=== PATIENT | female | born 1985 | race Caucasian/White ===

== ENCOUNTER 2017-05-05 13:05 | Inpatient (IN) | payer MEDICAID ==
[~2017-05-05] VITALS: Ht 177.8 cm; Wt 122.5 kg
[~2017-05-05 13:05] MED LIST: LAMO100 PO; LEVO25TA11 PO; METF500T4 PO; PALI234D IM; PALI6 PO
[2017-05-05] MEDS ORDERED: SODIUM CHLORIDE 0.9% 1,000 ML IV ONE (14:45)
[2017-05-05] MEDS ORDERED: ONDANSETRON HCL 4 MG/2 ML VIAL IVP ONE (14:45)
[2017-05-05 15:05] LABS: BASOPHILS % (AUTO) 0.5 % (0.0-2.0); EOSINOPHILS % (AUTO) 0 % (1.0-6.0); HEMATOCRIT 40.6 % (36-46); HEMOGLOBIN 13.8 g/dL (12.0-16.0); LYMPHOCYTES % (AUTO) 26.8 % (22.0-44.0); MEAN CORPUSCULAR HEMOGLOBIN 29.2 pg (26.0-34.0); MEAN CORPUSCULAR HGB CONC 33.9 G/dL (31.0-37.0); MEAN CORPUSCULAR VOLUME 86 fL (80-100); MONOCYTES # (AUTO) 0.6 K/uL (0.1-1.0); MONOCYTES % (AUTO) 5.2 % (2.0-9.0); NEUTROPHILS # (AUTO) 7.4 K/uL (1.8-7.7); NEUTROPHILS % (AUTO) 67.5 % (40.0-70.0); PLATELET COUNT (AUTO) 271 K/uL (150-450); RED BLOOD CELL COUNT(AUTO) 4.71 MIL/uL (4.00-5.20); RED CELL DISTRIBUTION WIDTH 12.1 % (11.5-14.5)
[2017-05-05 15:14] LABS: ANION GAP 11 mmol/L (8-16); CALCIUM, TOTAL 9.1 mg/dL (8.8-10.5); CARBON DIOXIDE 24 mmol/L (22-29); CHLORIDE 104 mmol/L (98-107); CREATININE 0.67 mg/dL (0.60-1.30); GLOMERULAR FILTR. RATE CALC > 60 mL/min (>60); POTASSIUM 3.4 mmol/L (3.5-5.1); SODIUM SERUM 139 mmol/L (136-145); UREA NITROGEN, BLOOD 4 mg/dL (7-18)
[2017-05-05 15:24] LABS: ALANINE AMINOTRANSFERASE 50 U/L (12-78); ASPARTATE AMINOTRANSFERASE 23 U/L (15-37); BILIRUBIN,TOTAL 0.5 mg/dL (0.1-1.0); TOTAL PROTEIN, SERUM 7.1 g/dL (6.4-8.2)
[2017-05-05 17:34] VITALS: BP 124/72
[2017-05-05] MEDS: LORazepam 2 MG TABLET PO PRN (18:08)
[2017-05-05] MEDS: HALOPERIDOL 5 MG TABLET PO PRN (18:08)
[2017-05-05] MEDS: PALIPERIDONE 6 MG ER TABLET PO SCH (18:08)
[2017-05-05 18:12] LABS: GLUCOSE,POINT OF CARE 118 MG/DL (70-110)
[2017-05-05] MEDS ORDERED: GLUCAGON,HUMAN RECOMBINANT 1 MG VIAL IM PRN (18:30)
[2017-05-05] MEDS ORDERED: INSULIN ASPART 100 UNITS/ML SQ PRN (18:30)
[2017-05-06] MEDS: LORazepam 2 MG TABLET PO PRN ×3 (01:35→17:35)
[2017-05-06] MEDS: HALOPERIDOL 5 MG TABLET PO PRN ×2 (01:37→08:29)
[2017-05-06 06:27] LABS: GLUCOSE,POINT OF CARE 119 MG/DL (70-110)
[2017-05-06] MEDS ORDERED: LEVOTHYROXINE SODIUM 25 MCG TABLET PO SCH (06:30)
[2017-05-06 06:41] VITALS: BP 120/60
[2017-05-06] MEDS: MetFORMIN HCL 500 MG TABLET PO SCH ×2 (07:12→16:42)
[2017-05-06 07:22] LABS: HEMOGLOBIN A1C 6.1 % (4.5-6.2)
[2017-05-06 08:17] LABS: CHOL/HDL RATIO 4.9 (3.9-5.7); THYROID STIMULATING HORMONE 6.36 uIU/mL (0.36-3.74)
[2017-05-06] MEDS: PALIPERIDONE 6 MG ER TABLET PO SCH ×2 (08:27→16:42)
[2017-05-06] MEDS: LamoTRIgine 100 MG TABLET PO SCH (08:29)
[2017-05-06] MEDS ORDERED: PETROLATUM,WHITE 71 GM JELLY TP PRN (15:15)
[2017-05-06 16:08] VITALS: BP 135/86
[2017-05-06 16:10] VITALS: BP 133/86
[2017-05-06] MEDS ORDERED: LOPERAMIDE HCL 2 MG CAPSULE PO PRN (18:00)
[2017-05-06] MEDS: ZOLPIDEM TARTRATE 10 MG TABLET PO PRN (20:28)
[2017-05-06] MEDS: ZINC OXIDE 16% PASTE 57 GM TUBE TP PRN (22:00)
[2017-05-07 03:50] VITALS: BP 119/80
[2017-05-07] MEDS: LORazepam 2 MG TABLET PO PRN ×3 (04:41→17:01)
[2017-05-07] MEDS: LEVOTHYROXINE SODIUM 50 MCG TABLET PO SCH (06:31)
[2017-05-07] MEDS: MetFORMIN HCL 500 MG TABLET PO SCH ×2 (06:31→17:01)
[2017-05-07 06:48] LABS: GLUCOSE,POINT OF CARE 124 MG/DL (70-110)
[2017-05-07 08:21] VITALS: BP 126/79
[2017-05-07] MEDS: PALIPERIDONE 6 MG ER TABLET PO SCH ×2 (08:31→17:27)
[2017-05-07] MEDS: LamoTRIgine 100 MG TABLET PO SCH (08:31)
[2017-05-07] MEDS: HALOPERIDOL 5 MG TABLET PO PRN ×2 (13:05→17:27)
[2017-05-07 16:05] VITALS: BP 126/71
[2017-05-07] MEDS: ZOLPIDEM TARTRATE 10 MG TABLET PO PRN (20:45)
[2017-05-07] MEDS: ONDANSETRON HCL 4 MG TABLET PO PRN (22:13)
[2017-05-08 00:02] VITALS: BP 140/94
[2017-05-08] MEDS: LORazepam 2 MG TABLET PO PRN ×4 (00:05→17:08)
[2017-05-08] MEDS: MetFORMIN HCL 500 MG TABLET PO SCH ×2 (06:38→16:13)
[2017-05-08] MEDS: LEVOTHYROXINE SODIUM 50 MCG TABLET PO SCH (06:38)
[2017-05-08 06:52] LABS: GLUCOSE,POINT OF CARE 106 MG/DL (70-110)
[2017-05-08 08:11] VITALS: BP 122/74
[2017-05-08] MEDS: PALIPERIDONE 6 MG ER TABLET PO SCH ×2 (08:51→16:13)
[2017-05-08] MEDS: LamoTRIgine 100 MG TABLET PO SCH (08:52)
[2017-05-08] MEDS: HALOPERIDOL 5 MG TABLET PO PRN ×2 (08:53→17:08)
[2017-05-08] MEDS: ONDANSETRON HCL 4 MG TABLET PO PRN (12:18)
[2017-05-08 16:10] VITALS: BP 118/69
[2017-05-09 00:47] VITALS: BP 132/78
[2017-05-09] MEDS: LORazepam 2 MG TABLET PO PRN ×3 (00:48→20:58)
[2017-05-09] MEDS: HALOPERIDOL 5 MG TABLET PO PRN ×2 (00:48→16:19)
[2017-05-09] MEDS: ZOLPIDEM TARTRATE 10 MG TABLET PO PRN (02:40)
[2017-05-09] MEDS: MetFORMIN HCL 500 MG TABLET PO SCH ×2 (06:39→16:18)
[2017-05-09] MEDS: LEVOTHYROXINE SODIUM 50 MCG TABLET PO SCH (06:39)
[2017-05-09 06:53] LABS: GLUCOSE,POINT OF CARE 104 MG/DL (70-110)
[2017-05-09] MEDS: ONDANSETRON HCL 4 MG TABLET PO PRN (07:41)
[2017-05-09] MEDS: LamoTRIgine 100 MG TABLET PO SCH (07:41)
[2017-05-09] MEDS: PALIPERIDONE 6 MG ER TABLET PO SCH ×2 (07:41→16:18)
[2017-05-09 08:07] VITALS: BP 130/98
[2017-05-09] MEDS ORDERED: IBUPROFEN 600 MG TABLET PO PRN (14:45)
[2017-05-09 15:02] VITALS: BP 126/84
[2017-05-09 16:08] VITALS: BP 141/72
[2017-05-10] MEDS: ACETAMINOPHEN 325 MG TABLET PO PRN ×2 (00:59→20:29)
[2017-05-10 01:07] VITALS: BP 123/77
[2017-05-10] MEDS: MetFORMIN HCL 500 MG TABLET PO SCH ×2 (05:53→16:55)
[2017-05-10] MEDS: LEVOTHYROXINE SODIUM 50 MCG TABLET PO SCH (05:53)
[2017-05-10 06:08] LABS: GLUCOSE,POINT OF CARE 146 MG/DL (70-110)
[2017-05-10] MEDS: PALIPERIDONE 6 MG ER TABLET PO SCH ×2 (06:35→16:26)
[2017-05-10] MEDS: ZINC OXIDE 16% PASTE 57 GM TUBE TP PRN (07:18)
[2017-05-10 08:08] VITALS: BP 126/86
[2017-05-10] MEDS: HALOPERIDOL 5 MG TABLET PO PRN (08:22)
[2017-05-10] MEDS: LORazepam 2 MG TABLET PO PRN ×2 (08:22→16:27)
[2017-05-10] MEDS: LamoTRIgine 100 MG TABLET PO SCH (08:22)
[2017-05-10 16:16] VITALS: BP 121/74
[2017-05-10] MEDS: ONDANSETRON HCL 4 MG TABLET PO PRN (18:39)
[2017-05-10] MEDS: ZOLPIDEM TARTRATE 10 MG TABLET PO PRN (20:29)
[2017-05-11] MEDS: LORazepam 2 MG TABLET PO PRN (00:29)
[2017-05-11] MEDS: HALOPERIDOL 5 MG TABLET PO PRN (00:29)
[2017-05-11 00:31] VITALS: BP 113/77
[2017-05-11] MEDS: MetFORMIN HCL 500 MG TABLET PO SCH (06:07)
[2017-05-11] MEDS: LEVOTHYROXINE SODIUM 50 MCG TABLET PO SCH (06:07)
[2017-05-11 06:12] LABS: GLUCOSE,POINT OF CARE 114 MG/DL (70-110)
[2017-05-11 08:55] VITALS: BP 125/64
[2017-05-11] MEDS: PALIPERIDONE 6 MG ER TABLET PO SCH (09:05)
[2017-05-11] MEDS: LamoTRIgine 100 MG TABLET PO SCH (09:06)
[2017-05-11] MEDS ORDERED: LEVO50TA11 PO (15:47)
[2017-05-11 16:07] VITALS: BP 109/66
== END 2017-05-11 17:00 | disposition home or self-care (01) | DRG 750 ==
LOC: EMS 13:08 → B3A 16:11
PROVIDERS: ADMIT Psychiatry & Neurology Psychiatry; ATTEND Psychiatry & Neurology Psychiatry
DX: F25.0 Schizoaffective disorder, bipolar type (principal); E11.9 Type 2 diabetes mellitus without complications; E03.9 Hypothyroidism, unspecified; F41.9 Anxiety disorder, unspecified; Z79.84 Long term (current) use of oral hypoglycemic drugs; R45.84 Anhedonia; R21 Rash and other nonspecific skin eruption; R53.83 Other fatigue; Z88.8 Allergy status to other drugs, medicaments and biological substances; Z91.048 Other nonmedicinal substance allergy status; Z63.9 Problem related to primary support group, unspecified
CPT/HCPCS: 82962; 83036; 84439; 84443; 87081; 96361; 96374; 99285; G0480; J2405; J7030; Q0162

== ENCOUNTER 2017-05-15 12:47 | Emergency (ER) | payer MEDICAID ==
[~2017-05-15] VITALS: Ht 175.3 cm; Wt 123.2 kg
[~2017-05-15 12:47] MED LIST changes: -LEVO25TA11 PO; +LEVO50TA11 PO
[2017-05-15 13:02] LABS: GLUCOSE,POINT OF CARE 99 MG/DL (70-110)
[2017-05-15 14:14] LABS: BASOPHILS % (AUTO) 0.9 % (0.0-2.0); EOSINOPHILS % (AUTO) 0 % (1.0-6.0); HEMATOCRIT 44.2 % (36-46); HEMOGLOBIN 14.9 g/dL (12.0-16.0); LYMPHOCYTES # (AUTO) 2.7 K/uL (1.0-4.8); LYMPHOCYTES % (AUTO) 30.4 % (22.0-44.0); MEAN CORPUSCULAR HEMOGLOBIN 28.9 pg (26.0-34.0); MEAN CORPUSCULAR HGB CONC 33.7 G/dL (31.0-37.0); MEAN CORPUSCULAR VOLUME 86 fL (80-100); MONOCYTES # (AUTO) 0.4 K/uL (0.1-1.0); MONOCYTES % (AUTO) 4.9 % (2.0-9.0); NEUTROPHILS # (AUTO) 5.6 K/uL (1.8-7.7); NEUTROPHILS % (AUTO) 63.8 % (40.0-70.0); PLATELET COUNT (AUTO) 283 K/uL (150-450); RED BLOOD CELL COUNT(AUTO) 5.16 MIL/uL (4.00-5.20); RED CELL DISTRIBUTION WIDTH 12.4 % (11.5-14.5); WHITE BLOOD COUNT (AUTO) 8.8 K/uL (4.5-11.0)
[2017-05-15 14:36] LABS: ALANINE AMINOTRANSFERASE 64 U/L (12-78); ANION GAP 7 mmol/L (8-16); ASPARTATE AMINOTRANSFERASE 22 U/L (15-37); BILIRUBIN,TOTAL 0.3 mg/dL (0.1-1.0); CALCIUM, TOTAL 9.2 mg/dL (8.8-10.5); CARBON DIOXIDE 28 mmol/L (22-29); CHLORIDE 103 mmol/L (98-107); CREATININE 0.65 mg/dL (0.60-1.30); GLOMERULAR FILTR. RATE CALC > 60 mL/min (>60); POTASSIUM 4.3 mmol/L (3.5-5.1); SODIUM SERUM 138 mmol/L (136-145); TOTAL PROTEIN, SERUM 7.1 g/dL (6.4-8.2); UREA NITROGEN, BLOOD 8 mg/dL (7-18)
[2017-05-15 15:44] VITALS: BP 132/82
== END 2017-05-15 16:04 | disposition home or self-care (01) ==
LOC: EMS 12:49
DX: R10.13 Epigastric pain (principal); R11.2 Nausea with vomiting, unspecified; R44.0 Auditory hallucinations; F41.9 Anxiety disorder, unspecified; F31.9 Bipolar disorder, unspecified; F20.9 Schizophrenia, unspecified; E03.9 Hypothyroidism, unspecified; Z76.0 Encounter for issue of repeat prescription; Z88.8 Allergy status to other drugs, medicaments and biological substances
CPT/HCPCS: 36415; 80053; 81002; 82962; 83690; 84703; 85025; 99284; G0480

== ENCOUNTER 2017-11-09 13:49 | Emergency (ER) | payer MEDICAID ==
[~2017-11-09] VITALS: Ht 175.3 cm; Wt 120.5 kg
[2017-11-09] MEDS ORDERED: LAMO100 PO (15:25)
[2017-11-09] MEDS ORDERED: FLUD25I IM (15:25)
[2017-11-09] MEDS ORDERED: LORA0.5T2 PO (15:25)
[2017-11-09 15:37] LABS: GLUCOSE,POINT OF CARE 164 MG/DL (70-110)
[2017-11-09] MEDS ORDERED: LORazepam 2 MG/ML VIAL IM ONE (16:15)
[2017-11-09] MEDS ORDERED: HALOPERIDOL LACTATE 5 MG/ML VIAL IM ONE (16:15)
[2017-11-09] MEDS ORDERED: DiphenhydrAMINE HCL 50 MG/ML VIAL IM ONE (16:15)
[2017-11-09 16:48] LABS: APPEARANCE,URINE CLOUDY (CLEAR); BILIRUBIN,URINE NEGATIVE (NEGATIVE); GLUCOSE, URINE (UA) NEGATIVE (NEGATIVE); KETONES,URINE NEGATIVE (NEGATIVE); LEUKOCYTE ESTERASE ,URINE SMALL (NEGATIVE); NITRATE,URINE NEGATIVE (NEGATIVE); OCCULT BLOOD,URINE SMALL (NEGATIVE); PH,URINE 5.5 (5.0-8.0); PROTEIN,URINE NEGATIVE (NEGATIVE); UROBILINOGEN,URINE 0.2 mg/dL (<=1.0)
[2017-11-09 16:54] LABS: AMPHET/METH SCREEN,URINE NEGATIVE (NEGATIVE); BARBITURATE SCREEN, URINE NEGATIVE (NEGATIVE); BENZODIAZEPINES SCREEN,URINE NEGATIVE (NEGATIVE); CANNABINOID SCREEN,URINE NEGATIVE (NEGATIVE); COCAINE SCREEN,URINE NEGATIVE (NEGATIVE); METHADONE SCREEN, URINE NEGATIVE (NEGATIVE); OPIATE SCREEN,URINE NEGATIVE (NEGATIVE)
[2017-11-09 16:58] LABS: PHENCYCLIDINE SCREEN,URINE NEGATIVE (NEGATIVE)
[2017-11-09 17:00] LABS: RBC,URINE 0-2 /HPF (0-2)
[2017-11-09 17:01] LABS: BASOPHILS % (AUTO) 0.7 % (0.0-2.0); EOSINOPHILS % (AUTO) 0 % (1.0-6.0); HEMATOCRIT 41.7 % (36-46); HEMOGLOBIN 14.1 g/dL (12.0-16.0); LYMPHOCYTES # (AUTO) 2.6 K/uL (1.0-4.8); LYMPHOCYTES % (AUTO) 27.4 % (22.0-44.0); MEAN CORPUSCULAR HEMOGLOBIN 27.7 pg (26.0-34.0); MEAN CORPUSCULAR HGB CONC 33.7 G/dL (31.0-37.0); MEAN CORPUSCULAR VOLUME 82 fL (80-100); MONOCYTES # (AUTO) 0.5 K/uL (0.1-1.0); MONOCYTES % (AUTO) 4.9 % (2.0-9.0); NEUTROPHILS # (AUTO) 6.4 K/uL (1.8-7.7); PLATELET COUNT (AUTO) 302 K/uL (150-450); RED BLOOD CELL COUNT(AUTO) 5.08 MIL/uL (4.00-5.20); RED CELL DISTRIBUTION WIDTH 13.8 % (11.5-14.5)
[2017-11-09 17:01] LABS: BACTERIA,URINE None Seen /HPF (None Seen); CALCIUM OXALATE CRYSTALS,UR Moderate /LPF (None Seen); SQUAMOUS EPITHELIAL CELL,UR Few /LPF (None Seen)
[2017-11-09 17:10] LABS: ANION GAP 12 mmol/L (8-16); CALCIUM, TOTAL 8.7 mg/dL (8.8-10.5); CARBON DIOXIDE 25 mmol/L (22-29); CHLORIDE 103 mmol/L (98-107); CREATININE 0.78 mg/dL (0.60-1.30); GLOMERULAR FILTR. RATE CALC > 60 mL/min (>60); GLUCOSE,RANDOM 157 mg/dL (70-110); POTASSIUM 3.5 mmol/L (3.5-5.1); SODIUM SERUM 140 mmol/L (136-145); UREA NITROGEN, BLOOD 7 mg/dL (7-18)
[2017-11-09 17:16] LABS: ALANINE AMINOTRANSFERASE 34 U/L (12-78); ALBUMIN 3.5 g/dL (3.4-5.0); ALKALINE PHOSPHATASE 121 U/L (46-116); ASPARTATE AMINOTRANSFERASE 18 U/L (15-37); BILIRUBIN,TOTAL 0.2 mg/dL (0.1-1.0); TOTAL PROTEIN, SERUM 6.6 g/dL (6.4-8.2)
[2017-11-09 18:00] VITALS: BP 120/77
== END 2017-11-09 18:32 | disposition home or self-care (01) ==
LOC: EMS 13:49
DX: F41.9 Anxiety disorder, unspecified (principal); F22 Delusional disorders; F31.9 Bipolar disorder, unspecified; R00.0 Tachycardia, unspecified; F20.9 Schizophrenia, unspecified; E03.9 Hypothyroidism, unspecified; Z76.0 Encounter for issue of repeat prescription; Z88.8 Allergy status to other drugs, medicaments and biological substances
CPT/HCPCS: 36415; 71045; 80053; 80307; 81001; 82962; 84484; 84703; 85025; 87086; 93005; 96372; 99285; G0480; J1200; J1630; J2060

== ENCOUNTER 2017-12-03 03:54 | Inpatient (IN) | payer MEDICAID ==
[~2017-12-03] VITALS: Ht 177.8 cm; Wt 122.7 kg
[~2017-12-03 03:54] MED LIST changes: -METF500T4 PO; +METF500T6 PO
[2017-12-03 04:08] LABS: GLUCOSE,POINT OF CARE 206 MG/DL (70-110)
[2017-12-03] MEDS ORDERED: RISP1 PO (04:10)
[2017-12-03 04:17] LABS: EOSINOPHILS % (AUTO) 0 % (1.0-6.0); HEMATOCRIT 42.2 % (36-46); HEMOGLOBIN 14.1 g/dL (12.0-16.0); LYMPHOCYTES # (AUTO) 1.6 K/uL (1.0-4.8); LYMPHOCYTES % (AUTO) 15.6 % (22.0-44.0); MEAN CORPUSCULAR HGB CONC 33.4 G/dL (31.0-37.0); MEAN CORPUSCULAR VOLUME 81 fL (80-100); MONOCYTES # (AUTO) 0.4 K/uL (0.1-1.0); MONOCYTES % (AUTO) 3.7 % (2.0-9.0); NEUTROPHILS # (AUTO) 8.2 K/uL (1.8-7.7); NEUTROPHILS % (AUTO) 79.7 % (40.0-70.0); PLATELET COUNT (AUTO) 278 K/uL (150-450); RED BLOOD CELL COUNT(AUTO) 5.22 MIL/uL (4.00-5.20); RED CELL DISTRIBUTION WIDTH 14.2 % (11.5-14.5)
[2017-12-03 04:30] LABS: ANION GAP 13 mmol/L (8-16); CARBON DIOXIDE 25 mmol/L (22-29); CHLORIDE 102 mmol/L (98-107); CREATININE 0.89 mg/dL (0.60-1.30); GLOMERULAR FILTR. RATE CALC > 60 mL/min (>60); GLUCOSE,RANDOM 197 mg/dL (70-110); POTASSIUM 3.7 mmol/L (3.5-5.1); SODIUM SERUM 140 mmol/L (136-145); UREA NITROGEN, BLOOD 4 mg/dL (7-18)
[2017-12-03 04:36] LABS: ALANINE AMINOTRANSFERASE 31 U/L (12-78); ALBUMIN 3.9 g/dL (3.4-5.0); ALKALINE PHOSPHATASE 109 U/L (46-116); ASPARTATE AMINOTRANSFERASE 15 U/L (15-37); BILIRUBIN,TOTAL 0.5 mg/dL (0.1-1.0); TOTAL PROTEIN, SERUM 7.4 g/dL (6.4-8.2)
[2017-12-03] MEDS ORDERED: LORazepam 2 MG/ML VIAL IM ONE ×2 (05:30→07:00)
[2017-12-03] MEDS ORDERED: DiphenhydrAMINE HCL 50 MG/ML VIAL IM ONE (05:30)
[2017-12-03] MEDS ORDERED: HALOPERIDOL LACTATE 5 MG/ML VIAL IM ONE (05:30)
[2017-12-03 08:58] LABS: APPEARANCE,URINE CLEAR (CLEAR); BILIRUBIN,URINE NEGATIVE (NEGATIVE); GLUCOSE, URINE (UA) NEGATIVE (NEGATIVE); KETONES,URINE NEGATIVE (NEGATIVE); LEUKOCYTE ESTERASE ,URINE SMALL (NEGATIVE); NITRATE,URINE NEGATIVE (NEGATIVE); OCCULT BLOOD,URINE NEGATIVE (NEGATIVE); PH,URINE 7.5 (5.0-8.0); PROTEIN,URINE NEGATIVE (NEGATIVE); UROBILINOGEN,URINE 0.2 mg/dL (<=1.0)
[2017-12-03 09:01] LABS: AMPHET/METH SCREEN,URINE NEGATIVE (NEGATIVE); BARBITURATE SCREEN, URINE NEGATIVE (NEGATIVE); BENZODIAZEPINES SCREEN,URINE NEGATIVE (NEGATIVE); CANNABINOID SCREEN,URINE NEGATIVE (NEGATIVE); COCAINE SCREEN,URINE NEGATIVE (NEGATIVE); METHADONE SCREEN, URINE NEGATIVE (NEGATIVE); OPIATE SCREEN,URINE NEGATIVE (NEGATIVE)
[2017-12-03 09:02] LABS: PHENCYCLIDINE SCREEN,URINE NEGATIVE (NEGATIVE)
[2017-12-03 09:09] LABS: BACTERIA,URINE None Seen /HPF (None Seen); RBC,URINE None Seen /HPF (0-2); SQUAMOUS EPITHELIAL CELL,UR Moderate /LPF (None Seen)
[2017-12-04] MEDS: ZOLPIDEM TARTRATE 10 MG TABLET PO PRN (03:51)
[2017-12-04] MEDS: HALOPERIDOL 5 MG TABLET PO PRN ×2 (08:00→14:41)
[2017-12-04] MEDS: LORazepam 2 MG TABLET PO PRN ×2 (08:00→14:41)
[2017-12-04 08:12] LABS: FREE T4 (FREE THYROXINE) 0.98 ng/dL (0.76-1.46); THYROID STIMULATING HORMONE 9.55 uIU/mL (0.36-3.74)
[2017-12-04 11:17] LABS: GLUCOSE,POINT OF CARE 138 MG/DL (70-110)
[2017-12-04 13:33] LABS: GLUCOSE,POINT OF CARE 130 MG/DL (70-110)
[2017-12-04 17:02] LABS: GLUCOSE,POINT OF CARE 141 MG/DL (70-110)
[2017-12-04] MEDS ORDERED: ACETAMINOPHEN 500 MG TABLET PO ONE (17:45)
[2017-12-04 18:47] VITALS: BP 114/67
[2017-12-04] MEDS ORDERED: DEXTROSE 50%-WATER 25 GM/50 ML SYRINGE IVP PRN (20:30)
[2017-12-05 06:53] LABS: GLUCOMETER DEV NAME(LOC) 3EC; GLUCOSE,POINT OF CARE 126 MG/DL (70-110)
[2017-12-05] MEDS: INSULIN LISPRO 100 UNITS/ML SQ PRN (06:54)
[2017-12-05] MEDS: MetFORMIN HCL 500 MG TABLET PO SCH ×2 (07:00→16:28)
[2017-12-05] MEDS: LORazepam 2 MG TABLET PO PRN ×2 (07:59→16:28)
[2017-12-05] MEDS: HALOPERIDOL 5 MG TABLET PO PRN ×2 (07:59→16:28)
[2017-12-05] MEDS: NYSTATIN 15 GM POWDER BOTTLE TP SCH ×2 (08:01→16:27)
[2017-12-05 08:26] VITALS: BP 127/88
[2017-12-05] MEDS: PALIPERIDONE 6 MG ER TABLET PO SCH ×2 (09:28→21:36)
[2017-12-05] MEDS ORDERED: IBUPROFEN 600 MG TABLET PO PRN (16:15)
[2017-12-05] MEDS ORDERED: ACETAMINOPHEN 325 MG TABLET PO PRN (16:15)
[2017-12-05 16:53] VITALS: BP 126/75
[2017-12-05 17:28] LABS: GLUCOMETER DEV NAME(LOC) 3EC; GLUCOSE,POINT OF CARE 126 MG/DL (70-110)
[2017-12-05] MEDS: LamoTRIgine 100 MG TABLET PO SCH (21:37)
[2017-12-06 05:48] LABS: GLUCOMETER DEV NAME(LOC) 3EC; GLUCOSE,POINT OF CARE 154 MG/DL (70-110)
[2017-12-06] MEDS: LEVOTHYROXINE SODIUM 50 MCG TABLET PO SCH (06:55)
[2017-12-06] MEDS: MetFORMIN HCL 500 MG TABLET PO SCH ×2 (06:55→17:17)
[2017-12-06] MEDS: INSULIN LISPRO 100 UNITS/ML SQ PRN ×2 (07:05→17:45)
[2017-12-06 08:00] VITALS: BP 129/54
[2017-12-06] MEDS: PALIPERIDONE 6 MG ER TABLET PO SCH ×2 (08:24→20:17)
[2017-12-06] MEDS: NYSTATIN 15 GM POWDER BOTTLE TP SCH ×2 (09:00→17:00)
[2017-12-06] MEDS ORDERED: PALIPERIDONE PALMITATE 234 MG/1.5 ML SYRINGE IM SCH (09:15)
[2017-12-06] MEDS: LORazepam 2 MG TABLET PO PRN ×2 (09:58→23:35)
[2017-12-06] MEDS: HALOPERIDOL 5 MG TABLET PO PRN (09:59)
[2017-12-06 17:18] VITALS: BP 124/79
[2017-12-06 17:33] LABS: GLUCOMETER DEV NAME(LOC) 3EC; GLUCOSE,POINT OF CARE 153 MG/DL (70-110)
[2017-12-06] MEDS: LamoTRIgine 100 MG TABLET PO SCH (20:17)
[2017-12-06] MEDS: ZOLPIDEM TARTRATE 10 MG TABLET PO PRN (23:35)
[2017-12-07 00:41] VITALS: BP 134/89
[2017-12-07 06:17] LABS: GLUCOMETER DEV NAME(LOC) 3EC; GLUCOSE,POINT OF CARE 134 MG/DL (70-110)
[2017-12-07] MEDS: INSULIN LISPRO 100 UNITS/ML SQ PRN (06:39)
[2017-12-07] MEDS: LEVOTHYROXINE SODIUM 50 MCG TABLET PO SCH (06:40)
[2017-12-07] MEDS: MetFORMIN HCL 500 MG TABLET PO SCH ×2 (07:01→17:19)
[2017-12-07] MEDS: PALIPERIDONE 6 MG ER TABLET PO SCH ×2 (08:08→21:10)
[2017-12-07] MEDS: NYSTATIN 15 GM POWDER BOTTLE TP SCH ×2 (08:09→17:19)
[2017-12-07 09:02] VITALS: BP 129/95
[2017-12-07 17:27] LABS: GLUCOMETER DEV NAME(LOC) 3EC; GLUCOSE,POINT OF CARE 133 MG/DL (70-110)
[2017-12-07] MEDS: LamoTRIgine 100 MG TABLET PO SCH (21:10)
[2017-12-07 22:17] VITALS: BP 139/87
[2017-12-08 05:52] LABS: GLUCOMETER DEV NAME(LOC) 3EC; GLUCOSE,POINT OF CARE 116 MG/DL (70-110)
[2017-12-08] MEDS: LEVOTHYROXINE SODIUM 50 MCG TABLET PO SCH (06:47)
[2017-12-08] MEDS: INSULIN LISPRO 100 UNITS/ML SQ PRN (06:48)
[2017-12-08] MEDS: MetFORMIN HCL 500 MG TABLET PO SCH ×2 (07:02→21:09)
[2017-12-08] MEDS: PALIPERIDONE 6 MG ER TABLET PO SCH ×2 (07:53→21:00)
[2017-12-08] MEDS: NYSTATIN 15 GM POWDER BOTTLE TP SCH ×2 (07:55→21:09)
[2017-12-08 08:48] VITALS: BP 107/63
[2017-12-08] MEDS: LORazepam 2 MG TABLET PO PRN (09:33)
[2017-12-08] MEDS: HALOPERIDOL 5 MG TABLET PO PRN (09:33)
[2017-12-08] MEDS ORDERED: LORazepam 2 MG/ML VIAL ONE (10:49)
[2017-12-08] MEDS ORDERED: HALOPERIDOL LACTATE 5 MG/ML VIAL ONE (10:49)
[2017-12-08] MEDS ORDERED: DiphenhydrAMINE HCL 50 MG/ML VIAL ONE (10:50)
[2017-12-08] MEDS ORDERED: DiphenhydrAMINE HCL 50 MG/ML VIAL IM ONE (11:00)
[2017-12-08] MEDS ORDERED: HALOPERIDOL LACTATE 5 MG/ML VIAL IM ONE (11:00)
[2017-12-08] MEDS ORDERED: LORazepam 2 MG/ML VIAL IM ONE (11:00)
[2017-12-08] MEDS: LamoTRIgine 100 MG TABLET PO SCH (21:00)
[2017-12-08 22:12] LABS: GLUCOMETER DEV NAME(LOC) 3EC; GLUCOSE,POINT OF CARE 133 MG/DL (70-110)
[2017-12-09] MEDS: ZOLPIDEM TARTRATE 10 MG TABLET PO PRN (00:26)
[2017-12-09] MEDS: LORazepam 2 MG TABLET PO PRN ×3 (00:26→14:45)
[2017-12-09 05:28] LABS: GLUCOMETER DEV NAME(LOC) 3EC; GLUCOSE,POINT OF CARE 101 MG/DL (70-110)
[2017-12-09] MEDS: LEVOTHYROXINE SODIUM 50 MCG TABLET PO SCH (06:55)
[2017-12-09] MEDS: MetFORMIN HCL 500 MG TABLET PO SCH ×2 (06:55→16:02)
[2017-12-09] MEDS: INSULIN LISPRO 100 UNITS/ML SQ PRN (07:00)
[2017-12-09 08:33] VITALS: BP 129/70
[2017-12-09] MEDS: NYSTATIN 15 GM POWDER BOTTLE TP SCH ×2 (09:17→16:02)
[2017-12-09] MEDS: PALIPERIDONE 6 MG ER TABLET PO SCH ×2 (09:17→20:24)
[2017-12-09] MEDS: HALOPERIDOL 5 MG TABLET PO PRN ×2 (09:18→14:44)
[2017-12-09 16:12] LABS: GLUCOMETER DEV NAME(LOC) 3EC; GLUCOSE,POINT OF CARE 123 MG/DL (70-110)
[2017-12-09 16:36] VITALS: BP 146/79
[2017-12-09] MEDS: LamoTRIgine 100 MG TABLET PO SCH (20:24)
[2017-12-10 06:17] LABS: GLUCOMETER DEV NAME(LOC) 3EC; GLUCOSE,POINT OF CARE 112 MG/DL (70-110)
[2017-12-10] MEDS: LEVOTHYROXINE SODIUM 50 MCG TABLET PO SCH (06:48)
[2017-12-10] MEDS: MetFORMIN HCL 500 MG TABLET PO SCH ×2 (06:48→17:09)
[2017-12-10 08:05] VITALS: BP 114/77
[2017-12-10] MEDS: PALIPERIDONE 6 MG ER TABLET PO SCH ×2 (08:15→20:49)
[2017-12-10] MEDS: NYSTATIN 15 GM POWDER BOTTLE TP SCH ×2 (08:15→16:32)
[2017-12-10] MEDS: HALOPERIDOL 5 MG TABLET PO PRN ×3 (08:16→17:09)
[2017-12-10] MEDS: LORazepam 2 MG TABLET PO PRN ×3 (08:16→17:09)
[2017-12-10 17:00] VITALS: BP 133/77
[2017-12-10 20:42] LABS: GLUCOMETER DEV NAME(LOC) 3EC; GLUCOSE,POINT OF CARE 139 MG/DL (70-110)
[2017-12-10] MEDS: LamoTRIgine 100 MG TABLET PO SCH (20:49)
[2017-12-11] MEDS: ZOLPIDEM TARTRATE 10 MG TABLET PO PRN (00:46)
[2017-12-11] MEDS: LORazepam 2 MG TABLET PO PRN ×2 (00:46→13:18)
[2017-12-11] MEDS: HALOPERIDOL 5 MG TABLET PO PRN ×2 (01:38→13:19)
[2017-12-11 05:47] LABS: GLUCOMETER DEV NAME(LOC) 3EC; GLUCOSE,POINT OF CARE 136 MG/DL (70-110)
[2017-12-11] MEDS: MetFORMIN HCL 500 MG TABLET PO SCH (06:51)
[2017-12-11] MEDS: LEVOTHYROXINE SODIUM 50 MCG TABLET PO SCH (06:51)
[2017-12-11] MEDS: NYSTATIN 15 GM POWDER BOTTLE TP SCH ×2 (09:00→16:03)
[2017-12-11] MEDS: PALIPERIDONE 6 MG ER TABLET PO SCH (09:05)
[2017-12-11 09:07] VITALS: BP 106/76
[2017-12-11] MEDS ORDERED: PALI234D IM (14:06)
[2017-12-11] MEDS ORDERED: PALI6 PO (14:06)
[2017-12-11 15:57] LABS: GLUCOMETER DEV NAME(LOC) 3EC; GLUCOSE,POINT OF CARE 133 MG/DL (70-110)
== END 2017-12-11 17:00 | disposition home or self-care (01) | DRG 750 ==
LOC: EMS 03:54 → 3EC 12-04 17:58
PROC: 5A09357 Assistance with Respiratory Ventilation, Less than 24 Consecutive Hours, Continuous Positive Airway Pressure (ICD-10-PCS; principal; 2017-12-04)
PROC: 5A09357 Assistance with Respiratory Ventilation, Less than 24 Consecutive Hours, Continuous Positive Airway Pressure (ICD-10-PCS; 2017-12-08)
PROC: 5A09357 Assistance with Respiratory Ventilation, Less than 24 Consecutive Hours, Continuous Positive Airway Pressure (ICD-10-PCS; 2017-12-09)
PROC: 5A09357 Assistance with Respiratory Ventilation, Less than 24 Consecutive Hours, Continuous Positive Airway Pressure (ICD-10-PCS; 2017-12-10)
DX: F25.0 Schizoaffective disorder, bipolar type (principal); E11.9 Type 2 diabetes mellitus without complications; R45.851 Suicidal ideations; I10 Essential (primary) hypertension; E03.9 Hypothyroidism, unspecified; G47.33 Obstructive sleep apnea (adult) (pediatric); E66.9 Obesity, unspecified; F41.9 Anxiety disorder, unspecified; Z88.8 Allergy status to other drugs, medicaments and biological substances; Z79.84 Long term (current) use of oral hypoglycemic drugs; Z79.899 Other long term (current) drug therapy; Z82.49 Family history of ischemic heart disease and other diseases of the circulatory system; Z68.38 Body mass index [BMI] 38.0-38.9, adult
CPT/HCPCS: 84439; 84443; 87081; 94660; 96372; 99285; G0480; J1200; J1630; J2060